=== PATIENT | male | born 1965 | race Caucasian/White ===

== ENCOUNTER 2019-02-03 10:45 | Day surgery (SDC) | payer OTHER ==
[~2019-02-03] VITALS: Ht 165.1 cm; Wt 90.6 kg
[2019-02-03] MEDS ORDERED: PROPOFOL 0 ML ONE (11:47)
[2019-02-03 11:53] VITALS: Ht 165.1 cm; Wt 90.6 kg
[2019-02-03] MEDS ORDERED: AMLODIPINE (11:59)
[2019-02-03] MEDS ORDERED: ASPI-903 PO (11:59)
[2019-02-03] MEDS ORDERED: PANTOPRAZOLE (11:59)
[2019-02-03] MEDS ORDERED: ATORVASTATIN (11:59)
[2019-02-03 12:09] VITALS: BP 127/85; PULSE 83; RESP 24
--- NOTE | 2019-02-03 12:29 | PREAC ---
Date/Time of Note Date/Time of Note DATE: 02/03/19 TIME: 12:28 Anesthesia Eval and Record Evaluation Time Pre-Procedure Interview DATE: 02/03/19 TIME: 12:28 Age 53 Sex male NPO: 8 hrs Preoperative diagnosis Abdominal pain, colon screening Planned procedure EGD, colonoscopy Past Medical History Past Medical History: Includes Cardio: HTN, Dyslipidemia GI: Obesity Surgery & Anesthesia Issues No known issue Meds Anticoagulation: No Beta Bebo within 24 hr: No Reason Beta Bebo not given: Pt. not on B-Bebo Reported Medications Aspirin* (Aspirin* Chew) 81 Mg Tab.chew, 81 MG PO DAILY, TAB.CHEW 02/03/19 [Pantoprazole] No Conflict Check 02/03/19 [Atorvastatin] No Conflict Check 02/03/19 [Amlodipine] No Conflict Check 02/03/19 Meds reviewed: Yes Allergies Coded Allergies: Sulfa (Sulfonamide Antibiotics) (Verified Allergy, Unknown, 02/03/19) Allergies Reviewed: Yes Labs/Studies Labs Reviewed: Reviewed by anesthesiologist test: N/A Pre-procedure Exam Last vitals Vital Signs Date Temp Pulse Resp B/P (MAP) Pulse Ox O2 O2 Flow FiO2 Time Delivery Rate 02/03/19 98.4 83 24 127/85 99 Room Air 12:09 (99) Airway: Adequate mouth opening Mallampati: Mallampati II Teeth: Normal Lung: Normal Heart: Normal ASA Physical Status ASA physical status: 2 Emergency: None Planned Anesthetic General/MAC: MAC Planned Pain Management Parenteral pain med Pre-operative Attestations Prior to commencing anesthesia and surgery, the patient was re-evaluated, there was verification of: *The patient's identity *The results of appropriate recent lab work and preoperative vital signs *The above evaluation not changing prior to induction *Anesthetic plan, risk benefits, alternative and complications discussed with patient/family; questions answered; patient/family understands, accepts and wishes to proceed. RACHELL LAWRENCE MD Feb 03, 2019 12:29
[2019-02-03] MEDS ORDERED: PROPOFOL 20 ML ONE ×2 (12:32)
--- NOTE | 2019-02-03 14:25 | PAC ---
Date/Time of Note Date/Time of Note DATE: 02/03/19 TIME: 14:23 Post-Anesthesia Notes Post-Anesthesia Note Last documented vital signs Vital Signs Date Temp Pulse Resp B/P (MAP) Pulse Ox O2 O2 Flow FiO2 Time Delivery Rate 02/03/19 98.4 83 24 127/85 99 Room Air 12:09 (99) Activity: WNL Respiratory function: WNL Cardiovascular function: WNL Mental status: Baseline Pain reasonably controlled: Yes Hydration appropriate: Yes Nausea/Vomiting absent: Yes Comments BP: 117/78, HR: 78, SSpO2: 99, HR: 81, BT: 98.6 RACHELL LAWRENCE MD Feb 03, 2019 14:25
--- NOTE | 2019-02-03 21:04 | CONS ---
DATE OF ADMISSION: 02/03/2019 DATE OF CONSULTATION: PATIENT NAME: ARI GOMES TYPE OF CONSULTATION: Preoperative gastroenterology. Dear Dr. Bravo: I thank you very much for this kind referral. HISTORY OF PRESENT ILLNESS: Mr. Ari Gomes is a 53-year-old male patient who has been referred to me for further evaluation of upper abdominal pain and chronic heartburn not completely responding to th erapy with pantoprazole. The patient also complains of burping. The patient has been taking baby as pirin a day. No history of gallstones or liver disease. He also complains of change in the bowel lawson bit. No past history of colon neoplasm. Never had screening colonoscopy. PAST MEDICAL HISTORY: He has hypertension. Not a diabetic. No heart disease, lung problem or kidne y disease. He has hyperlipidemia. SOCIAL HISTORY: The patient is an occasional smoker. No alcohol abuse. FAMILY HISTORY: No family history of gastrointestinal tract neoplasm. ALLERGIES: SULFA. MEDICATIONS: 1. Amlodipine. 2. Benazepril. 3. Atorvastatin. 4. Pantoprazole. 5. Aspirin 81 mg. PHYSICAL EXAMINATION: VITAL SIGNS: He is 5 feet, 5 inches tall and weighs 194 pounds. HEART: Normal heart sounds. LUNGS: Clear. ABDOMEN: Soft. No masses. Normal bowel sounds. NEUROLOGIC: Normal. IMPRESSION: 1. Upper abdominal pain and chronic heartburn, not responding to therapy with pantoprazole. 2. The patient also complains of burping. 3. He is on baby aspirin a day. 4. Change in the bowel habit. 5. The patient never had screening colonoscopy. 6. Hypertension. 7. Hyperlipidemia. 8. The patient is an occasional smoker. 9. ALLERGY TO SULFA. PLAN: 1. Endoscopic examination for further evaluation of upper abdominal pain and chronic heartburn. 2. Screening colonoscopy. 3. Because of the obesity with a short thick neck with a history of snoring during sleep, the patien t needs monitored anesthesia care for the procedures. The procedures and possible complications are well explained to the patient. He understands and cons ents to the procedures. I thank you once again. With warmest personal regards, Dictated By: VANESSA VILLEDA/BRITTANY Conf#: [id number] DID#: [id number]
== END 2019-02-03 14:35 | disposition home or self-care (01) ==
LOC: EDSEX 10:45 → GIL 10:45
PROVIDERS: ATTEND Internal Medicine Gastroenterology
DX: Z12.11 Encounter for screening for malignant neoplasm of colon (principal); K29.30 Chronic superficial gastritis without bleeding; K64.8 Other hemorrhoids; K52.9 Noninfective gastroenteritis and colitis, unspecified; K44.9 Diaphragmatic hernia without obstruction or gangrene; K21.9 Gastro-esophageal reflux disease without esophagitis; F17.200 Nicotine dependence, unspecified, uncomplicated
CPT/HCPCS: 88305; 88312